=== PATIENT | female | born 1960 | race Caucasian/White ===

== ENCOUNTER → 2018-10-23 09:35 | Outpatient (CLI) | payer MEDICARE ==
[~2018-10-23 09:35] MED LIST: ARMOUR THYROID120 MG; CALCIUM 600 +1 EAC3; CIMETIDINE200 MG; CYCLOBENZAPRINE10 MG; CYMBALTA60 MG PO; HYDROCODON-ACE1 EA10 PO; MAGNESIUM OXID500 MG; MEGARED FISH OIL; PROBIOTIC1 EAC1; ZYRTEC10 MG PO
== END | disposition home or self-care (01) ==
LOC: D.MRI 09:35
DX: M66.371 Spontaneous rupture of flexor tendons, right ankle and foot (principal)

== ENCOUNTER 2019-05-23 06:40 | Day surgery (SDC) | payer MEDICARE ==
[2019-05-22 09:07] LABS: HEMATOCRIT 41.6 % (36.0-48.0); HEMOGLOBIN 13.5 g/dL (12-16); MCH 28.8 pg (26.0-34.0); MCHC 32.5 g/dL (31.0-37.0); MCV 88.9 fL (80.0-100.0); MEAN PLATELET VOLUME 9.2 fL (7.4-10.4); RBC 4.68 10x6/uL (4.00-5.40); RDW 14.4 % (11.5-14.5); WBC 5.4 10x3/uL (4.8-10.8)
[~2019-05-23] VITALS: Ht 167.6 cm; Wt 86.2 kg
[2019-05-23 07:04] VITALS: BP 140/80; Ht 167.6 cm; Wt 86.2 kg
--- NOTE | 2019-05-23 07:21 | NUR ---
CALLED CANDY PULLER TO INFORM OF POSITIVE SUICIDE RISK SCREEN
--- NOTE | 2019-05-23 11:00 | NUR ---
PATIENT WALKS TO BATHROOM WITHOUT UNSTEADINESS OR DIZZINESS AND VOIDS LARGE AMOUNT IN TOILET WITHOUT DIFFICULTY, LEFT HAND PIV DC'D WITH TIP INTACT. PATIENT DRESSING IN PERSONAL CLOTHING 1110 DISCHARGED HOME VIA WHEELCHAIR TO PRIVATE VEHICLE WITH SON
--- NOTE | 2019-05-30 12:28 | OP ---
PATIENT NAME: FARZANA MONTERROSO MEDICAL RECORD: [id number] :60 LOCATION:D.OPS ADMISSION DATE: SURGEON: TINA BAIRES MD DATE OF OPERATION: 05/23/2019 PREOPERATIVE DIAGNOSIS: Trigger thumb of the right thumb. POSTOPERATIVE DIAGNOSIS: Trigger thumb of the right thumb. PROCEDURE: Right trigger thumb release. SURGEON: Tina Baires MD ANESTHESIA: General. INTRAOPERATIVE COMPLICATIONS: None. SUMMARY OF PATHOLOGIC FINDINGS: The patient had a very tight raymon at the base of the trigger thumb. Excoriation of the flexor tendon was noted without any tendon tearing. OPERATIVE SUMMARY IN DETAIL: After obtaining the appropriate preoperative orthopedic surgery consent as well as anesthetic consultation, evaluation and clearance, the patient was brought to the operating room and placed on the operating table in supine position. After general laryngeal mask airway was administered, tourniquet was placed in the proximal aspect of the right upper extremity. Right upper extremity was then prepped and draped in routine sterile fashion. The arm was elevated and exsanguinated, appropriate timeout was taken at this point and agreed upon by all. Incision was made over the base of the thumb directly over the A1 raymon. This was taken down to the level of A1 raymon under direct visualization with retraction of the digital nerves. A1 raymon was incised in its entirety. The flexor mechanism was examined and the findings as noted above. The wound was then irrigated and closed with 4-0 Prolene. Local anesthesia was placed around the incision. Sterile dressings were applied. Tourniquet was deflated. The patient was awakened and taken to the recovery room in stable condition. All final needle and sponge counts were correct. TRANSINT:[id number] Voice Confirmation ID: [id number] DOCUMENT ID: [id number] TINA BAIRES MD at 1228 CC: [id number] DICTATION DATE: 05/30/19 1053 PC INSTALLATION ENGINEER: 05/30/19 1108 [facility] 05/23/[address] [id number]
== END 2019-05-23 11:10 | disposition home or self-care (01) ==
LOC: D.OPS 06:40 → D.PAN 07:30 → D.OPS 08:45
PROVIDERS: Anesthesiology; ATTEND Orthopaedic Surgery
DX: M65.311 Trigger thumb, right thumb (principal); K21.9 Gastro-esophageal reflux disease without esophagitis

== ENCOUNTER 2019-07-29 09:42 | Day surgery (SDC) | payer MEDICARE ==
[2019-07-26 10:54] LABS: HEMATOCRIT 40.9 % (36.0-48.0); HEMOGLOBIN 13.3 g/dL (12-16); MCH 28.5 pg (26.0-34.0); MCHC 32.5 g/dL (31.0-37.0); MCV 87.8 fL (80.0-100.0); MEAN PLATELET VOLUME 9.1 fL (7.4-10.4); RBC 4.66 10x6/uL (4.00-5.40); RDW 14.3 % (11.5-14.5); WBC 5.1 10x3/uL (4.8-10.8)
[~2019-07-29] VITALS: Ht 167.6 cm; Wt 90.7 kg
--- NOTE | ~2019-07-29 | OP ---
PATIENT NAME: FARZANA MONTERROSO MEDICAL RECORD: [id number] :60 LOCATION:D.OPS ADMISSION DATE: SURGEON: TINA BAIRES MD DATE OF OPERATION: 07/29/2019 PREOPERATIVE DIAGNOSIS: Carpal tunnel syndrome of the right wrist. POSTOPERATIVE DIAGNOSIS: Carpal tunnel syndrome of the right wrist. PROCEDURE: Right carpal tunnel release. SURGEON: Tina Baires MD ANESTHESIA: General. INTRAOPERATIVE COMPLICATIONS: None. SUMMARY OF PATHOLOGIC FINDINGS: The patient had a very tight transverse carpal ligament consistent with preoperative diagnosis, EMGs and NCVs. OPERATIVE SUMMARY IN DETAIL: After obtaining the appropriate preoperative orthopedic surgery consent as well as anesthetic consultation, evaluation and clearance operating room and placed in supine position. After general laryngeal mask airway was administered, tourniquet was placed on the proximal aspect of the right upper extremity. Right upper extremity was then prepped and draped in routine sterile fashion. The arm was elevated and exsanguinated, tourniquet inflated to 250 mmHg. At this point, appropriate intraoperative timeout was taken and agreed upon while placed on the patient's unique identifiers. Incision made in the mid palmar aspect in line with the fourth metacarpal ray taken down normally distal aspect transverse carpal ligament. Under direct visualization using the [place] light knife and tenotomy, the entire transverse carpal ligament was released. The wound was irrigated and closed with 4-0 Prolene. The area was locally anesthetized with 0.25% Marcaine plain. Sterile dressings applied. Tourniquet was deflated. The patient was awakened, taken to the recovery room in stable condition. All final needle and sponge counts were correct. TRANSINT:[id number] Voice Confirmation ID: [id number] DOCUMENT ID: [id number] TINA BAIRES MD CC: [id number] DICTATION DATE: 07/29/19 1126 CLOTH PACKER: 07/29/19 1747 [facility] 07/29/19 [facility] [address] [place] [address]
[2019-07-29] MEDS ORDERED: OMEPRAZOLE40 MG PO (10:01)
[2019-07-29 10:09] VITALS: BP 135/69; Ht 167.6 cm; Wt 90.7 kg
--- NOTE | 2019-07-29 10:59 | NUR ---
POSITIVE FOR SUICIDE SCREENING LIFETIME QUESTION. DENIES FURTHER EVALUATION AT THIS TIME.
[2019-07-29] MEDS ORDERED: HYDROCODON-ACE1 EA10 PO (11:23)
--- NOTE | 2019-07-29 13:00 | NUR ---
PT DC INSTRUCTIONS REVIEWED AT THIS TIME, PT VERBALIZES UNDERSTANDING. PT IV REMOVED AT THIS TIME, INTACT, NO REDNESS OR SWELLING NOTED AT SITE.
--- NOTE | 2019-07-29 13:20 | NUR ---
PT LEAVING OPS AT THIS TIME VIA WC, NAD NOTED.
== END 2019-07-29 13:20 | disposition home or self-care (01) ==
LOC: D.OPS 09:42 → D.PAN 15:30
PROVIDERS: Anesthesiology; ATTEND Orthopaedic Surgery
DX: G56.01 Carpal tunnel syndrome, right upper limb (principal)